=== PATIENT | male | born 1975 | race Caucasian/White ===

== ENCOUNTER 2023-01-21 10:06 | Inpatient (IN) | payer MEDICAID, SELFPAY ==
[2023-01-21 10:13] VITALS: BP 178/102; PULSE 65; RESP 18; TEMP 37; O2SAT 96
[2023-01-21 10:15] VITALS: BMI 34.0
[2023-01-21] MEDS: metoprolol succinate ER (24 HR) 25 mg Tablet PO (12:51)
[2023-01-21] MEDS: gabapentin 400 mg Capsule 800 MG PO ×2 (12:51→20:38)
[2023-01-21] MEDS: pantoprazole DR 40 mg Tablet PO (12:51)
[2023-01-21] MEDS: diazePAM 5 mg Tablet 10 MG PO (12:51)
[2023-01-21] MEDS: amlodipine 10 mg Tablet PO (12:51)
[2023-01-21] MEDS: methocarbamol 500 mg Tablet 1000 MG PO ×2 (12:52→20:38)
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
[2023-01-21 14:00] VITALS: BP 145/84; PULSE 69; RESP 20; TEMP 36.9; O2SAT 94
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
[2023-01-21] MEDS: lurasidone 20 mg Tablet PO (17:30)
[2023-01-21] MEDS: HYDROcodone-acetaminophen 5-325 mg Tablet 1 TAB PO (18:16)
[2023-01-21 20:05] VITALS: BP 159/90; PULSE 63; RESP 18; TEMP 37.2; O2SAT 95
[2023-01-21] MEDS: mirtazapine 30 mg Tablet PO (20:38)
[2023-01-21] MEDS: amitriptyline 25 mg Tablet 75 MG PO (20:38)
[2023-01-21] MEDS: nicotine 2 mg Gum BUCCAL (20:38)
--- NOTE | 2023-01-21 22:44 | NPU.GN ---
[facility] Neuro[facility] Unit Group Topic:wood working General Mood of Group patient engaged with group while not doing a project.
[2023-01-22] MEDS: HYDROcodone-acetaminophen 5-325 mg Tablet 1 TAB PO ×3 (04:10→15:22)
[2023-01-22 06:00] VITALS: BP 147/93; PULSE 50; RESP 18; TEMP 36.7; O2SAT 96
[2023-01-22] MEDS: pantoprazole DR 40 mg Tablet PO (08:34)
[2023-01-22] MEDS: gabapentin 400 mg Capsule 800 MG PO ×3 (08:35→20:19)
[2023-01-22] MEDS: methocarbamol 500 mg Tablet 1000 MG PO ×3 (08:35→20:19)
[2023-01-22] MEDS: atorvastatin 40 mg Tablet PO (08:35)
[2023-01-22] MEDS: amlodipine 10 mg Tablet PO (08:35)
[2023-01-22] MEDS: metoprolol succinate ER (24 HR) 25 mg Tablet PO (08:35)
[2023-01-22] MEDS: nicotine 2 mg Gum BUCCAL ×3 (10:45→20:21)
[2023-01-22 14:00] VITALS: BP 128/83; PULSE 64; RESP 18; TEMP 36.6; O2SAT 94
--- NOTE | 2023-01-22 14:10 | PC.NURSE ---
attended morning group at 1030
--- NOTE | 2023-01-22 15:59 | P.NPUPN_ITS ---
Subjective NPU Subjective: The patient is a 47-year-old white male with a history of bipolar disorder currently depressed admitted with the depressed mood and suicidal ideation. Patient had reported significant stressors leading to his hospitalization. He had reported that the continued thought of homelessness had been very concerning to him. He had reported an extended history of problems with anxiety as well along with active medical problems. The patient had reported that he had slept a little better with the Latuda that was started yesterday. He had reported having a greater amount of time spent feeling depressed than going through pascual. He had reported that his manic symptoms had mostly stabilized despite him having been off Depakote for quite a few months. He had reported considerable medical issues that often made him struggle with concentration as he states the MS was often extremely fatiguing for him. He had indicated that stress would often worsen his MS symptoms physically. Mental Status Exam MSE Comments: Patient is a 47-year-old white male who appeared with an antalgic gait who was alert and oriented to person place and time. He appeared in some mild distress today. He was friendly and cooperative on interview. His hygiene was fair. There was no evidence of any abnormal involuntary motor movements tics or tremors appreciated. His speech was normal in regards to rate rhythm and prosody. His mood was endorsed as a little better. His affect was restricted in range and mood-congruent. There was no clear evidence of delusional thinking. He did not appear to be responding to internal stimuli. His attention span appeared adequate. His recent and remote memory were intact on interview. His insight and judgment were limited at this time. Impulse control appeared poor. He did not endorse any suicidal ideation currently. He denied any homicidal ideation. Vitals/I&O/Wt Last Vital Signs Temp 97.8 F 01/22/23 14:00 Pulse 64 01/22/23 14:00 Resp 18 01/22/23 14:00 BP 128/83 01/22/23 14:00 Pulse Ox 94 01/22/23 14:00 O2 Del Method Room Air 01/22/23 14:00 Weight last 48 hrs Weight 126.189 kg Weight 126.552 kg A&P Assessment and plan (1) Bipolar disorder, unspecified: Plan Patient is a 47-year-old white male with bipolar disorder admitted wi th suicidal ideation in the context of recent stressors leading to the patient being homeless. He would likely benefit from continued inpatient hospitalization with adjustment of medications. 1.? ? Engage? patient in individual ,milieu, and group therapy ?2. ? We will attempt to gather collateral information from previous providers ?3. ? TO-15 minute checks on the unit. ?4.? Recommend sober living treatment at the highest level of care to which the patient is willing to commit. 5. Increase Latuda to 60 mg daily. Continue amitriptyline 75 mg at night. Continue Valium 10 mg twice a day to target anxiety. Reduce mirtazapine to 15 mg at night. Involuntary Hold Information 96 Hour Hold: 96 Hour Involuntary Admission: No Attestations NPU Medical Necessity Statement*: Patient hospitalization is medically necessary and deemed to be the clinically appropriate intervention at this time. We will monitor and initiate medications while making changes as indicated. He will be in the hospital for over 2 midnights. His likely length of stay is 2-4 days. Coding Level of Care Code Acute Code for [facility] Diagnoses Bipolar disorder, unspecified F31.9
[2023-01-22] MEDS: lurasidone 20 mg Tablet 40 MG PO (16:35)
[2023-01-22] MEDS: amitriptyline 25 mg Tablet 75 MG PO (20:19)
[2023-01-22] MEDS: mirtazapine 30 mg Tablet 15 MG PO (20:19)
[2023-01-22 20:37] VITALS: BP 118/79; PULSE 51; RESP 18; TEMP 36.9; O2SAT 94
[2023-01-23] MEDS: HYDROcodone-acetaminophen 5-325 mg Tablet 1 TAB PO ×3 (03:53→18:14)
[2023-01-23 06:00] VITALS: BP 149/88; PULSE 56; RESP 18; TEMP 36.4; O2SAT 97
--- NOTE | 2023-01-23 06:34 | PC.NURSE ---
resp. pt. sleeping
[2023-01-23] MEDS: nicotine 2 mg Gum BUCCAL ×3 (07:43→20:56)
[2023-01-23] MEDS: methocarbamol 500 mg Tablet 1000 MG PO ×3 (09:00→20:33)
[2023-01-23] MEDS: amlodipine 10 mg Tablet PO (09:00)
[2023-01-23] MEDS: atorvastatin 40 mg Tablet PO (09:00)
[2023-01-23] MEDS: gabapentin 400 mg Capsule 800 MG PO ×3 (09:00→20:33)
[2023-01-23] MEDS: pantoprazole DR 40 mg Tablet PO (09:00)
[2023-01-23] MEDS: metoprolol succinate ER (24 HR) 25 mg Tablet PO (09:01)
[2023-01-23] MEDS: diazePAM 5 mg Tablet 10 MG PO (12:37)
[2023-01-23 13:59] VITALS: BP 133/82; PULSE 64; RESP 16; TEMP 36.9; O2SAT 94
--- NOTE | 2023-01-23 15:46 | W.PM.NPUPNS ---
Subjective NPU Subjective: The patient is a 47-year-old white male with a history of bipolar disorder currently depressed admitted with the depressed mood and suicidal ideation. Patient had reported considerable anxiety about his living situation. He had continued to require the use of a walker with his active MS symptoms noted. He had reported significant pain issues. He had reported some improvement in sleep with his Latuda. He denied any manic symptoms at this time. He had reported having less intense thoughts of hurting himself this time. He was able to attend groups and appeared to offer good support to his peers. He denied any feelings of hopelessness. He had reported complaints of chronic low energy and low motivation. He had also endorsed anhedonia that had been there for several weeks if not months. Mental Status Exam MSE Comments: Patient is a 47-year-old white male who appeared with an antalgic gait who was alert and oriented to person place and time. He did require the use of a walker. He did not appear in as much distress today he e was friendly and cooperative on interview. His hygiene was fair. There was no evidence of any abnormal involuntary motor movements tics or tremors appreciated. His speech was normal in regards to rate rhythm and prosody. His mood was endorsed as a better. His affect remained restricted in range and mood-incongruent. There was no clear evidence of delusional thinking. He did not appear to be responding to internal stimuli. His attention span appeared adequate. His recent and remote memory were intact on interview. His insight and judgment were limited at this time. Impulse control appeared poor. He did not endorse any suicidal ideation currently. He denied any homicidal ideation. Vitals/I&O/Wt Last Vital Signs Temp 98.4 F 01/23/23 13:59 Pulse 64 01/23/23 13:59 Resp 16 01/23/23 13:59 BP 133/82 01/23/23 13:59 Pulse Ox 94 01/23/23 13:59 O2 Del Method Room Air 01/23/23 13:59 Weight last 48 hrs Weight 126.189 kg A&P Assessment and plan (1) Bipolar disorder, unspecified: Plan Patient is a 47-year-old white male with bipolar disorder admitted with suicidal ideation in the context of recent stressors leading to the patient being homeless. He would likely benefit from continued inpatient hospitalization with adjustment of medications. 1.? ? Engage? patient in individual ,milieu, and group therapy ?2. ? We will attempt to gather collateral information from previous providers ?3. ? TO-15 minute checks on the unit. ?4.? Recommend sober living treatment at the highest level of care to which the patient is willing to commit. 5. Latuda to 60 mg daily. Continue amitriptyline 75 mg at night. Continue Valium 10 mg twice a day to target anxiety. Mirtazapine to 15 mg at night. Involuntary Hold Information 96 Hour Hold: 96 Hour Involuntary Admission: No Attestations NPU Medical Necessity Statement*: Patient hospitalization is medically necessary and deemed to be the clinically appropriate intervention at this time. We will monitor and initiate medications while making changes as indicated. He will be in the hospital for over 2 midnights. His likely length of stay is 2-4 days. Coding Level of Care Code Acute Code for [facility] Fwd Diagnoses Bipolar disorder, unspecified F31.9
[2023-01-23] MEDS: lurasidone 20 mg Tablet 60 MG PO (17:49)
[2023-01-23 20:12] VITALS: BP 143/78; PULSE 72; RESP 20; TEMP 36.9; O2SAT 97
[2023-01-23] MEDS: mirtazapine 30 mg Tablet 15 MG PO (20:33)
[2023-01-23] MEDS: amitriptyline 25 mg Tablet 75 MG PO (20:34)
[2023-01-24 06:00] VITALS: BP 134/85; PULSE 55; RESP 16; TEMP 36.6; O2SAT 98
[2023-01-24] MEDS: nicotine 2 mg Gum BUCCAL ×3 (06:56→19:11)
[2023-01-24] MEDS: HYDROcodone-acetaminophen 5-325 mg Tablet 1 TAB PO ×3 (06:56→19:11)
[2023-01-24] MEDS: gabapentin 400 mg Capsule 800 MG PO ×3 (10:21→19:11)
[2023-01-24] MEDS: metoprolol succinate ER (24 HR) 25 mg Tablet PO (10:22)
[2023-01-24] MEDS: amlodipine 10 mg Tablet PO (10:22)
[2023-01-24] MEDS: atorvastatin 40 mg Tablet PO (10:22)
[2023-01-24] MEDS: pantoprazole DR 40 mg Tablet PO (10:22)
[2023-01-24] MEDS: methocarbamol 500 mg Tablet 1000 MG PO ×3 (10:23→19:11)
[2023-01-24 13:34] VITALS: BP 147/89; PULSE 65; RESP 18; TEMP 36.4; O2SAT 95
[2023-01-24] MEDS: diazePAM 5 mg Tablet 10 MG PO (15:06)
--- NOTE | 2023-01-24 15:44 | W.PM.NPUPNS ---
Subjective NPU Subjective: The patient is a 47-year-old white male with a history of bipolar disorder currently depressed, admitted with the depressed mood and suicidal ideation. He denied any worsening pascual. He reported some improvement in sleep and adequate control of his depression with only fleeting suicidal thoughts reported. He had reported some feelings of hopelessness and he continue to report anxiety about being homeless. He reported that his energy continued to remain low. He reported no problems with worsening pain. He had reported good control over his anxiety with the Valium prescribed. Mental Status Exam MSE Comments: Patient is a 47-year-old white male who appeared with an antalgic gait who was alert and oriented to person place and time. He did require the use of a walker. He was calm and cooperative on interview. His hygiene was fair. There was no evidence of any abnormal involuntary motor movements tics or tremors appreciated. His speech was normal in regards to rate rhythm and prosody. His mood was endorsed as okay. His affect was mildly restricted today. There was no clear evidence of delusional thinking. He did not appear to be responding to internal stimuli. His attention span appeared adequate. His recent and remote memory were intact on interview. His insight and judgment were limited at this time. Impulse control appeared to be improving. He did not endorse any suicidal ideation currently. He denied any homicidal ideation. Vitals/I&O/Wt Last Vital Signs Temp 97.5 F L 01/24/23 13:34 Pulse 65 01/24/23 13:34 Resp 18 01/24/23 13:34 BP 147/89 01/24/23 13:34 Pulse Ox 95 01/24/23 13:34 O2 Del Method Room Air 01/24/23 13:34 A&P Assessment and plan (1) Bipolar disorder, unspecified: Plan Patient is a 47-year-old white male with bipolar disorder admitted with suicidal ideation in the context of recent stressors leading to the patient being homeless. He would likely benefit from continued inpatient hospitalization with adjustment of medications. 1.? ? Engage? patient in individual ,milieu, and group therapy ?2. ? We will attempt to gather collateral information from previous providers ?3. ? TO-15 minute checks on the unit. ?4.? Recommend sober living treatment at the highest level of care to which the patient is willing to commit. 5. Latuda to 60 mg daily. Continue amitriptyline 75 mg at night. Continue Valium 10 mg twice a day to target anxiety. Mirtazapine to 15 mg at night. 6. Likely discharge tommorow. Involuntary Hold Information 96 Hour Hold: 96 Hour Involuntary Admission: No Attestations NPU Medical Necessity Statement*: Patient hospitalization is medically necessary and deemed to be the clinically appropriate intervention at this time. We will monitor and initiate medications while making changes as indicated. His likely length of stay is 2-4 days. Coding Level of Care Code Acute Code for [facility] Diagnoses Bipolar disorder, unspecified F31.9
[2023-01-24] MEDS: lurasidone 20 mg Tablet 60 MG PO (17:25)
[2023-01-24] MEDS: amitriptyline 25 mg Tablet 75 MG PO (19:11)
[2023-01-24] MEDS: mirtazapine 30 mg Tablet 15 MG PO (19:11)
[2023-01-24 21:58] VITALS: BP 150/92; PULSE 59; RESP 18; TEMP 36.6; O2SAT 96
[2023-01-25] MEDS: HYDROcodone-acetaminophen 5-325 mg Tablet 1 TAB PO ×2 (04:55→11:57)
[2023-01-25 06:00] VITALS: BP 120/80; PULSE 93; RESP 15; TEMP 36.4; O2SAT 98
[2023-01-25] MEDS: nicotine 2 mg Gum BUCCAL ×2 (07:29→11:57)
[2023-01-25] MEDS: methocarbamol 500 mg Tablet 1000 MG PO (09:50)
[2023-01-25] MEDS: atorvastatin 40 mg Tablet PO (09:50)
[2023-01-25] MEDS: metoprolol succinate ER (24 HR) 25 mg Tablet PO (09:50)
[2023-01-25] MEDS: amlodipine 10 mg Tablet PO (09:50)
[2023-01-25] MEDS: pantoprazole DR 40 mg Tablet PO (09:50)
[2023-01-25] MEDS: diazePAM 5 mg Tablet 10 MG PO (09:50)
[2023-01-25] MEDS: gabapentin 400 mg Capsule 800 MG PO (09:50)
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
[2023-01-25 11:36] VITALS: BP 120/80; PULSE 93; RESP 15; TEMP 36.4; O2SAT 98
[2023-01-25 14:00] VITALS: BP 135/83; PULSE 61; RESP 18; TEMP 36.8; O2SAT 95
== END 2023-01-25 14:54 | disposition home or self-care (01) | DRG 885 ==
PROVIDERS: Admitting Provider Psychiatry & Neurology Psychiatry; Visit Provider Psychiatry & Neurology Psychiatry
DX: F31.9 Bipolar disorder, unspecified (principal); R45.851 Suicidal ideations; F43.10 Post-traumatic stress disorder, unspecified; K21.9 Gastro-esophageal reflux disease without esophagitis; I10 Essential (primary) hypertension; X58.XXXS Exposure to other specified factors, sequela; E03.9 Hypothyroidism, unspecified; G35 Multiple sclerosis; Z59.01 Sheltered homelessness; Z79.891 Long term (current) use of opiate analgesic
CPT/HCPCS: 97150; 97165; 99238